=== PATIENT | female | born 1935 | race Caucasian/White ===

== ENCOUNTER → 2016-10-01 | Outpatient (CLI) | payer OTHER ==
[~2016-10-01] VITALS: Ht 162.6 cm; Wt 70.3 kg
[~2016-10-01] MED LIST: ASPIR 8181 M1 PO; VITAMIN B-12500 MC4 PO; VITAMIN D1000 UNI1 PO
--- NOTE | ~2016-10-01 | P ---
[facility] [place] [address] PROCEDURE REPORT Name: MARK GIRARD Room #: [facility].#: [id number] Admission: 10/01/16 Attend Phys: Bry Russell MD Discharge: Date of : 31 Report #: [id number] THIS REPORT FOR: //name// CC: Rodger Dickey DO [facility] physician/PCP Bry Russell BRIEF HISTORY: The patient is an 81-year-old woman with history of multiple colon polyps. POSTOPERATIVE DIAGNOSES: 1. Multiple colon polyps. 2. Mild left-sided diverticulosis coli. 3. Internal hemorrhoids. MEDICATIONS: Deep sedation with propofol per anesthesia. SPECIMENS: 1. Polyps times 2 at 60 cm. 2. Polyp, mid transverse colon. 3. Hepatic flexure polyps times 2. 4. Polyp at 70 cm. 5. Polyps times 2 at 50 cm. ESTIMATED BLOOD LOSS: 3 mL. PROCEDURE: Colonoscopy to cecum and terminal ileum. FINDINGS: Prior to propofol sedation, procedure of colonoscopy discussed with the patient as well as potential risks, benefits, and complications. She indicates she understands and desires to proceed. With the patient in left lateral decubitus position, digital examination was completed, which revealed no abnormalities. Subsequently, the [employer] video colonoscope was introduced into the rectum and advanced under direct vision to the cecum. Done with some difficulty due to looping, but we were able to advance the scope into the cecum and identified the ileocecal valve as well as the appendiceal orifice. I was able to visualize the distal segment of the terminal ileum, which was inspected and noted to be within normal limits. At that point, the scope was slowly withdrawn and careful circumferential views were obtained. Upon slow withdrawal of the scope, the prep was noted to be good. The mucosa was within normal limits, normal vascular pattern, and normal light reflex. She was found to have polyps of multiple locations throughout the colon. A diminutive polyp was removed by biopsy from the mid transverse colon, 2 polyps were removed from the hepatic flexure, the larger one was about 5 mm, removed by cold snare polypectomy and the other by biopsy. A diminutive polyp was found at 70 cm. Two polyps found at 60 cm, 1 about 5-6 mm, removed by cold [facility] [address] [place] [address] PROCEDURE REPORT Name: MARK GIRARD Room #: [facility].#: [id number] Admission: 10/01/16 Attend Phys: Bry Russell MD Discharge: Date of : 31 Report #: [id number] snare polypectomy and the other by biopsy. At 50 cm, 2 diminutive polyps were seen and removed by biopsy. Additional findings include mild sigmoid diverticular disease without endoscopic evidence of diverticulitis. The scope was withdrawn in the rectum. Upon retroflexion, small internal hemorrhoids were seen. Scope was withdrawn. The patient tolerated the procedure well. CONDITION OF THE PATIENT UPON DISCHARGE: Following procedure, the patient was drowsy, aroused and conversant. She will be discharged home when fully ambulatory. INSTRUCTIONS TO THE PATIENT AND FAMILY AT THE TIME OF DISCHARGE: Multiple polyps removed as described above. All relatively small and have a benign appearance. We will follow up on the path. At this point in life, there is likely minimal benefit from continued routine surveillance colonoscopy. She should return to care of Dr. Rodger Dickey and return to see me as needed. Withdrawal time from the cecum including the polypectomies was 25 minutes. Last colonoscopy was more than 3 years ago. <ELECTRONICALLY SIGNED> By: Bry Russell MD 10/02/16 1809 1159 Bry Russell MD /nt
--- NOTE | ~2016-10-01 | S ---
[facility] [place] [address] [place] [address] SURGICAL PATH RPT PROCEDURE Name: MARK GIRARD Room #: [facility] M..#: [id number] Admission: 10/01/16 Date of : 31 Discharge: Report #: [id number] Path Case #: [id number] PATHOLOGY REPORT COLLECTION DATE: 10/01/2016 RECEIVED DATE: 10/02/2016 SUBMITTING PHYS: Dr. Bry Russell OTHER PHYS: SPECIMEN(S) RECEIVED: A.Polyp at 60 cm x 2 B.Bx mid transverse C.Hepatic flexure polyp x 2 D.Bx polyp at 70 cm E.Bx polyp at 50 cm x 2 * * * * * * * * * * * * FINAL DIAGNOSIS: A. Colonic mucosa "polyp at 60 cm x2": - Fragments of tubular and hyperplasia polyps. - There is no evidence of high grade dysplasia or malignancy. B. Colonic mucosa "biopsy mid transverse": - Fragments of tubular adenoma. - There is no evidence of high grade dysplasia or malignancy. C. Colonic mucosa "hepatic flexure polyp x2": - Fragments of tubular adenomas. - There is no evidence of high grade dysplasia or malignancy. D. Colonic mucosa "biopsy polyp at 70": - Fragments of hyperplastic polyps. - There is no evidence of adenomatous change, high grade dysplasia or malignancy. E. Colonic mucosa, "biopsy polyp at 50 cm x2": - Fragments of tubular and hyperplastic polyps. - There is no evidence of high grade dysplasia or malignancy. (IGNACIO:suma; d/t: 10/05/2016) PATHOLOGIST: Rahat Dobson M.D. REPORT ELECTRONICALLY SIGNED BY: Rahat Dobson M.D. DATE/TIME: 10/05/2016 14:13 * * * * * * * * * * * * GROSS PATHOLOGY: A. Received in formalin labeled "Mark Girard and polyp at 60 cm," are 4 segments of valdes soft tissue measuring 2.3 x 0.3 x 0.2 cm in aggregate dimensions and ranging from 0.2 to 0.7 cm in maximum dimension. The specimen is submitted entirely in cassette A1. [address] [address] SURGICAL PATH RPT PROCEDURE Name: MARK GIRARD Room #: REG [facility]..#: [id number] Admission: 10/01/16 Date of : 31 Discharge: Report #: [id number] Path Case #: [id number] B. Received in formalin labeled "Mark Girard and bx mid transverse," are 2 segments of valdes soft tissue measuring 1.0 x 0.2 x 0.2 cm in aggregate dimensions and measuring 0.3 and 0.7 cm in maximum dimension. The specimen is submitted entirely in cassette B1. C. Received in formalin labeled "Mark Girard and polyp at hepatic flexure," are 3 segments of valdes soft tissue measuring 1.5 x 0.3 x 0.2 cm in aggregate dimensions and ranging from 0.4 to 0.6 cm in maximum dimension. The specimen is submitted entirely in cassette C1. D. Received in formalin labeled "Mark Girard and bx polyp at 70," are 3 segments of valdes soft tissue measuring 1.4 x 0.2 x 0.2 cm in aggregate dimensions and ranging from 0.3 to 0.6 cm in maximum dimension. The specimen is submitted entirely in cassette D1. E. Received in formalin labeled "Mark Girard and bx polyp at 50 cm," are 3 segments of valdes soft tissue measuring 0.8 x 0.2 x 0.2 cm in aggregate dimensions and ranging from 0.2 to 0.3 cm in maximum dimension. The specimen is submitted entirely in cassette E1. (TTL; 10/02/2016) CLINICAL HISTORY: Pre-op diagnosis: History colon polyp Post-op diagnosis: Multiple colon polyps, diverticulosis, internal hemorrhoids INITIAL CPT CODE(S): A; 79408 B; 44593 C; 90278 D; 10168 E; 08967 Professional services performed by [facility] at [place] [address], [place] [address] Technical services performed by [facility] at [address] [place] [address], [address], [place] [address]. [facility] [address] [place] [address] PHONE: [phone] DIRECTOR: Behzad Howard M.D. * * * END OF REPORT * * *
== END ==
LOC: GI 09:04
DX: Z12.11 Encounter for screening for malignant neoplasm of colon (principal); D12.5 Benign neoplasm of sigmoid colon; D12.3 Benign neoplasm of transverse colon; D12.4 Benign neoplasm of descending colon; K63.5 Polyp of colon; K57.90 Diverticulosis of intestine, part unspecified, without perforation or abscess without bleeding; G47.33 Obstructive sleep apnea (adult) (pediatric); Z90.710 Acquired absence of both cervix and uterus
CPT/HCPCS: 62110; 62900